=== PATIENT | female | born 1990 | race Two or more races ===

== ENCOUNTER 2018-05-09 11:30 | Outpatient (AMBR) | payer MEDICAID, SELFPAY ==
--- NOTE | 2018-05-02 10:57 | PT.OIERPT ---
PT OP Initial Eval Patient Information Visit Reasons: foot pain Medical Diagnosis: M72.2 Treatment Dx #1: B foot pain Start of Care: 05/02/18 Date of Onset: 1 yr ago Initial Assessment Subjective Pt is 28 yr old female who jumped over a fence and felt immediate pain in the heels L>R. Since then, the pain has worsened in the heels and arch and prolonged walking, standing and taking weight and pressure off the heels. The first few steps are very painful in the morning. She is rolling the bottom of the feet on ice bottles without noticeable relief. PMH: heart sx in 8th grade Imaging: Xrays with provider Pt goal: to get some pain relief in order to walk better and shop. Objective L Ankle AROM: R ankle AROM: DF: to neutral 6 deg PF: 40 deg 45 deg Eversion: 5 deg Inv: 5 deg Strength: DF: 3-/5 4-/5 PF: 3-/5 4-/5 Eversion/Inv 3+/5 4-/5 Heel raise: NT but she says it's painful Gait: antalgic with decreased WB on L foot TTP: severe TTP of L heel with very light touch, R lateral calcaneus is moderately TTP Assessment Pt presents with very TTP L>R heels and plantar aspects of feet x1 yr. She ambulates with antalgia and has decreased ankle ROM and strength limited by pain. 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 Eval followed by [facility]. Short Term and Relations Liaison Goals 1. Ind with HEP 2. Improved ankle DF to 5 deg and PF to 50 deg 3. Improved ankle strength to 4/5 in all planes 4. Pt will heel raise x10 with <=4/10 pain 5. Pt will ambulate with symmetrical gait pattern community distances and no assistive device. Treatment Plan Pt has 2 visits authorized and will be scheduled for 2x a week. 1. Manual therapy 2. Therex 3. Modalities as indicated, moist heat, ice, estim Frequency and Duration 2x a week for 6 weeks Certification Dates: 05/02/18 to 08/02/18 Office Procedures PT Procedures PT Date of Service: 05/02/18 OP PT Eval Mod Complex 30 minutes: Yes
--- NOTE | 2018-05-09 12:35 | PT.ODAYNRPT ---
PT Outpatient Daily Note Date of Service: May 09, 2018 OP Daily Note Visit Reasons: foot pain Outpatient Physical Therapy Treatment Date: 05/09/18 Subjective: Doing HEP, overall a little better in the R foot but the L foot is still super painful, cries when she does the exercises Objective: See F/S for therex MT: STM with Graston to R plantar fascia, K tape x7' Assessment: Very high tissue irritability of L>R plantar aspects limit exercise, WB and manual therapy tolerance. Plan: Continue per POC Length of Time (minutes) of Treatment: 30 Minutes Office Procedures PT Procedures PT Date of Service: 05/02/18 OP PT Eval Mod Complex 30 minutes: Yes PT Procedures PT Date of Service: 05/09/18 Therapeutic Exercise 30 minutes: Yes
== END 2018-05-27 23:59 | disposition home or self-care (01) ==
PROVIDERS: Visit Provider Podiatrist
DX: M72.2 Plantar fascial fibromatosis (principal); M79.672 Pain in left foot; M79.671 Pain in right foot
CPT/HCPCS: 97110; 97162

== ENCOUNTER 2024-09-12 19:59 | Emergency (ER) | payer MEDICAID, SELFPAY ==
[2024-09-12 20:03] VITALS: BP 144/98; PULSE 88; RESP 18; TEMP 37; O2SAT 98; BMI 34.1
--- NOTE | 2024-09-12 20:48 | PD.EDGIBLD ---
ED GI Bleed RME/HPI General Chief complaint: GI Bleed Stated complaint: RECTAL BLEEDING Time Seen by Provider: 09/12/24 20:37 Arrival date/time: 09/12/24 19:59 RME / HPI RME / HPI Narrative: This section includes all my notes and documentations, including HPI, PE, and ED course. Nolan Elias MD HPI: 34yo female here with bright red rectal bleeding since this morning with diarrhea.no tarry stools. No nausea or vomiting. She is passing gas. She is not on any medications. No abdominal pain. No other complaints reported. ROS: All negative except as documented in HPI. Physical Exam: General: Alert and oriented. No acute distress when remaining still. Eyes: Conjunctivae and lids clear. ENT: No nasal congestion. Neck: Supple. Heart: RRR. Lungs: No respiratory distress. Good air movement. No rhonchi, wheezing, rales. Abdomen: Soft and nontender. Normal bowel sounds. No distension. No rebound or guarding. 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 Internal hemorrhoids noted, varying size and shape. Skin: Warm and dry. Neuro: Alert and oriented X 3. I reviewed all diagnostic test results. Blood tests are unremarkable. At this point, diagnoses include hemorrhoids. Recommended outpatient management. Based on my best medical judgment, made decision no further evaluation or treatment indicated at this time. Patient understands and agrees to the discharge instructions customized and printed, see below. Discharge instructions from Dr. Elias: ?After evaluation, your symptoms are due to hemorrhoids. See attached handout. ?Use Anusol suppositories as prescribed to help heal your hemorrhoids. ?During bowel movements, avoid pushing too hard which can cause hemorrhoids. ?To help prevent hard stools, increase oral fluid and maintain clear urine (if dark or yellow, increase oral fluid). And increase every day exercising and eating fresh fruits and fresh vegetables. ?Sitz bath in warm water and Epsom salt for 15 minute 2 or 3 times daily until your hemorrhoids resolve. ?See a private doctor on 09/16/2024 for recheck. To make sure there is no serious intra-abdominal condition, ask for help with more investigation not available here in the ER. Such as EGD or scoping the stomach, colonoscopy or scoping the colon, and referral to see job putter up and ticket preparer. ?Seek immediate medical care with worsening or with any concerns. Nolan Elias MD Related Data Home Medications ?Medication ?Instructions ?Recorded ?Confirmed prenat.vits,chapo,[id number] 1 tab PO QDAY 09/07/23 09/07/23 Previous Rx's ?Medication ?Instructions ?Recorded docusate sodium 100 mg capsule 100 mg PO BID #60 caps 11/04/23 (Colace) ibuprofen 800 mg tablet 800 mg PO Q6H PRN pain #120 tabs 11/04/23 lanolin 50 % topical ointment 1 applic topical TID PRN skin 11/04/23 irritation #15 tubes hydrocortisone acetate 25 mg 25 mg DC BID 14 days #28 ea 09/12/24 rectal suppository (Anusol-HC) Allergies Allergy/AdvReac Type Severity Reaction Status Date / Time No Known Allergies Allergy Verified 09/12/24 20:14 Review of Systems Review of Systems Systems Reviewed: All systems reviewed, normal except as documented Past Medical History Past Medical History NEUROLOGIC: Negative Neurological Disorders CARDIAC: Positive Cardiac Disorders (Heart Surgery at age 13) and Cardiac Arrhythmia; Negative Congestive Heart Failure RESPIRATORY: Negative Chronic Obstructive Pulmonary Disease (COPD) or Asthma GASTROINTESTINAL: Negative Gastrointestinal Disorders, Hepatitis or Colorectal Cancer GENITOURINARY: Negative Genitourinary Disorders, Renal Disease or Prostate Cancer REPRODUCTIVE: Positive Previous Pregnancies; Negative Breast Cancer, Pelvic Inflammatory Disease or Testicular Cancer MUSCULOSKELETAL: Negative Musculoskeletal Disorders or Bone Cancer ENDOCRINE: Negative Endocrine Disorders, Diabetes Mellitus Type 1 or Diabetes Mellitus Type 2 HEMATOLOGIC: Negative Blood Disorders, Anemia or Sickle Cell Disease OTHER HISTORY: Positive Chicken Pox; Negative Hospitalization, Autoimmune Disease, Down Syndrome, Developmental Delay, Shingles, Falls, Blood Transfusions, Blood Transfusion Reaction, Anesthesia Reactions, Organ Transplant, Chemotherapy, Radiation Therapy, Hyperbaric Therapy, MRSA, VRSA, Vancomycin-Resistant Enterococci, Human Immunodeficiency Virus (HIV), Measles, Mumps, Rubella ([place] Measles), Pertussis, Clostridium Difficile, Breast Cancer, Cervical Cancer, Colorectal Cancer, Lung Cancer, Ovarian Cancer, Prostate Cancer or Testicular Cancer Family History FAMILY HISTORY: Positive Family Cancer (Aunt leukemia); Negative Family Psychiatric Problems, Family Respiratory Disorders, Family Cardiac Disorders, Family Gastrointestinal Problems, Family Surgery or Family Anesthesia Reaction Surgical History SURGICAL: Positive Cardiac Surgery and Eye Surgery; Negative Endocrine Surgery, Abdominal Surgery, Nephrectomy, Joint Replacement, Neurologic Surgery, Mastectomy, Section or Organ Transplant Social History SMOKING STATUS: Current every day smoker SECOND HAND EXPOSURE: No ED Exam Narrative Physical exam: As noted in HPI. Course Quality Measures none Orders Category Date Time Status Bilirubin,Direct Stat Lab 09/12/24 21:08 Completed CBC Stat Lab 09/12/24 21:08 Completed CMP [Comprehensive Metabolic Panel] Stat Lab 09/12/24 21:08 Completed Magnesium Stat Lab 09/12/24 21:08 Completed PT [Prothrombin Time with INR] Stat Lab 09/12/24 21:08 Completed PTT [Partial Thromboplastin Time] Stat Lab 09/12/24 21:08 Completed Vital Signs Vital signs: Vital Signs Temperature 98.6 F 09/12/24 20:03 Pulse Rate 88 09/12/24 20:03 Respiratory Rate 18 09/12/24 20:03 Blood Pressure 144/98 H 09/12/24 20:03 Pulse Oximetry (%) 98 09/12/24 20:03 Oxygen Delivery Method Room Air 09/12/24 20:03 GI Bleed MDM Narrative MDM Narrative:: 34yo female here with bright red rectal bleeding since this morning with diarrhea.no tarry stools. No nausea or vomiting. She is passing gas. She is not on any medications. No abdominal pain. No other complaints reported. Patient data External records reviewed:: [facility] previous records (Per chart review, patient has no relevant previous ED visits.) Clinical information provided by:: patient Social determinants that could affect healthcare access:: none Patient has the following chronic illnesses:: none How is presenting disease/condition affected by chronic disease/condition?: no chronic disease Evaluation data The following diagnostics were reviewed and interpreted by me:: lab results Lab and/or radiology exams considered but not ordered:: none Interpretation Summary: I reviewed all diagnostic test results. Blood tests are unremarkable. Medications / Prescriptions Medications or Prescriptions considered but not ordered:: none Medication administrations:: none Consultations Consultation(s) initiated? (list below): No Diagnosis GI bleed differential diagnosis: hemorrhoids, esophageal varices, gastritis, Susanne-Reddy syndrome, Upper gastrointestinal hemorrhage, Lower gastrointestinal hemorrhage, hematochezia, melena and anal fissure Most likely diagnosis given after review of the tests above:: Hemorrhoids Admission Indicated Admission indicated?: not indicated Explain why admission is indicated or not indicated:: With no condition needing emergent intervention, there was no indication for admission. Admission Request Was there a request for admission?: No Disposition Plan Disposition Plan: Discharge Discharge Attestation Discharge Attestation: The patient and all family members were given an opportunity to ask questions and understood the discharge instructions. Discharge instructions specifically effects, indications for sooner follow up or return to the emergency department, and the expected course of current diagnosis. Patient condition: Stable Discharge Plan Plan Patient Disposition: HOME (Self Care) Prescriptions/Referrals Prescriptions/Med Rec: New hydrocortisone acetate [Anusol-HC] 25 mg suppository 25 mg DC BID 14 Days Qty: 28 0RF No Action prenat.vits,chapo,[id number] Tablet 1 tab PO QDAY ibuprofen 800 mg tablet 800 mg PO Q6H MDD 4 PRN (Reason: pain) Qty: 120 0RF docusate sodium [Colace] 100 mg capsule 100 mg PO BID Qty: 60 0RF lanolin 50 % ointment 1 applic topical TID PRN (Reason: skin irritation) Qty: 15 0RF Referrals: Arun Loo MD [Primary Care Provider] - In 1 week Problem List Clinical Impression: Hemorrhoids Patient/Caregiver Discharge Instructions Discharge Activity: activity as tolerated Education Materials: ED Hemorrhoids Additional Instructions: Discharge instructions from Dr. Elias: ?After evaluation, your symptoms are due to hemorrhoids.? See attached handout. ?Use Anusol suppositories as prescribed to help heal your hemorrhoids. ?During bowel movements, avoid pushing too hard which can cause hemorrhoids. ?To help prevent hard stools, increase oral fluid and maintain clear urine (if dark or yellow, increase oral fluid).? And increase every day exercising and eating fresh fruits and fresh vegetables. ?Sitz bath in warm water and Epsom salt for 15 minute 2 or 3 times daily until your hemorrhoids resolve. ?See a private doctor on 09/16/2024 for recheck. To make sure there is no serious intra-abdominal condition, ask for help with more investigation not available here in the ER. Such as EGD or scoping the stomach, colonoscopy or scoping the colon, and referral to see job putter up and ticket preparer. ?Seek immediate medical care with worsening or with any concerns. Print Language: Yoruba Stand Alone Forms: Марина Award Info., Patient Portal Info Letter
[2024-09-12 21:24] LABS: Basophils # (Auto) 0.1 Thou/mm3 (0.0-0.2); Basophils % (Auto) 0 % (0-2.5); Eosinophils # (Auto) 0.2 Thou/mm3 (0.0-0.5); Eosinophils % (Auto) 1 % (0-10); Hematocrit 40.6 % (36.0-46.0); Hemoglobin 13.7 g/dL (12.0-16.0); Immature Granulocytes Auto 0.09 Thou/mm3 (0.00-0.00); Lymphocytes # (Auto) 2.5 Thou/mm3 (1.0-4.8); Lymphocytes % (Auto) 21 % (10-50); Mean Corpuscular HGB Conc 33.7 g/dl (31.0-37.0); Mean Corpuscular Hemoglobin 29.9 pg (25.0-35.0); Mean Corpuscular Volume 89 fL (80-100); Monocytes # (Auto) 0.7 Thou/mm3 (0.0-0.8); Monocytes % (Auto) 6 % (0-12); Neutrophils # (Auto) 8.6 Thou/mm3 (1.8-7.7); Neutrophils % (Auto) 71 % (37-80); Nucleated Red Blood Cell # 0.00 Thou/mm3 (0.00-0.00); Nucleated Red Blood Cell % 0 /100 WBC (0); Platelet Count 271 Thou/mm3 (140-440); RDW Standard Deviation 40.7 fL (36.4-46.3); Red Blood Count 4.58 Miln/mm3 (4.00-5.20); White Blood Count 12.1 Thou/mm3 (3.6-11.0)
[2024-09-12 21:40] LABS: INR 1.0 (0.9-1.3); Partial Thromboplastin Time 28.1 Seconds (22.0-36.0); Prothrombin Time 10.9 Seconds (9.0-12.2)
[2024-09-12 21:43] LABS: Alanine Aminotransferase 14 U/L (10-49); Albumin, Serum 4.3 gm/dL (3.5-5.0); Albumin/Globulin Ratio 2.0 (1.2-2.2); Alkaline Phosphatase 124 U/L (46-116); Anion Gap 9 (7-16); Aspartate Amino Transferase 16 U/L (0-34); BUN/Creatinine Ratio 10 Ratio (12-20); Bilirubin,Direct 0.1 mg/dL (0.0-0.3); Bilirubin,Total 0.3 mg/dL (0.3-1.2); Blood Urea Nitrogen 10 mg/dL (9-23); Calcium 9.5 mg/dL (8.3-10.6); Calcium (Corrected) 9.5 mg/dL (8.5-10.1); Carbon Dioxide 25.1 mMol/L (20.0-31.0); Chloride 106 mMol/L (98-107); Creatinine (Component) 1.0 mg/dL (0.6-1.3); Estimated Creatinine Clearance 90.2 mL/min (>60); Globulin 2.1 gm/dL (2.3-3.5); Glucose 100 mg/dL (74-106); Magnesium 1.9 mg/dL (1.6-2.6); Osmolality,Calculated 278 (275-295); Potassium 3.6 mMol/L (3.4-5.1); Sodium 140 mMol/L (136-145); Total Protein 6.4 gm/dL (5.7-8.2); eGFR > 60 See Note
[2024-09-12 21:58] VITALS: PULSE 93; RESP 17; O2SAT 99
== END 2024-09-12 21:59 | disposition home or self-care (01) ==
PROVIDERS: Emergency Provider Emergency Medicine; PCP Family Medicine
DX: K64.8 Other hemorrhoids (principal)
CPT/HCPCS: 36415; 80053; 82248; 83735; 85025; 85610; 85730; 99283